=== PATIENT | female | born 1970 | race African-American/Black ===

== ENCOUNTER 2018-04-10 16:12 | Outpatient (CLI) | payer OTHER | END 2018-04-10 16:13 | disposition home or self-care (01) | LOC: BICMAMMO 16:12 | PROVIDERS: ATTEND Physician Assistant | DX: Z12.31 Encounter for screening mammogram for malignant neoplasm of breast (principal); Z80.3 Family history of malignant neoplasm of breast | CPT/HCPCS: 77063; 77067 ==

== ENCOUNTER 2019-09-08 14:31 | Outpatient (CLI) | payer OTHER ==
--- NOTE | 2019-09-08 15:17 | ULT ---
Exam: Right soft tissue neck ultrasound HISTORY: Right neck mass. COMPARISON: none TECHNIQUE: Targeted sonographic imaging of the right soft tissue neck performed There are no solid or cystic masses. Incidental right neck lymph node with preserved fatty hilum veena ures 0.6 x 0.4 x 1.2 cm. IMPRESSION: Incidental right soft tissue neck lymph node. If there is still suspicion for possible ri ght neck mass, consider postcontrast soft neck CT.
== END 2019-09-08 14:32 | disposition home or self-care (01) ==
LOC: BICULT 14:31
PROVIDERS: ATTEND Physician Assistant
DX: R22.1 Localized swelling, mass and lump, neck (principal)
CPT/HCPCS: 76999

== ENCOUNTER 2020-03-28 14:06 | Outpatient (CLI) | payer OTHER ==
--- NOTE | 2020-03-28 16:20 | MMO ---
Bilateral MAMMO Bilat Screen [facility]. CLINICAL HISTORY: Patient is 50 years old and is seen for screening. The patient has the following family history of breast cancer: 2 maternal aunts. The patient has no personal history of cancer. VIEWS: The views performed were: bilateral craniocaudal with tomosynthesis and bilateral mediolateral oblique with tomosynthesis. FILMS COMPARED: The present examination has been compared to prior imaging studies performed at [facility] on 03/30/2014, 04/03/2015, 04/12/2016 and 04/10/2018. This study has been interpreted with the assistance of computer-aided detection. MAMMOGRAM FINDINGS: There are scattered fibroglandular densities. There are no suspicious masses, suspicious calcifications, or new areas of architectural distortion. IMPRESSION: THERE IS NO MAMMOGRAPHIC EVIDENCE OF MALIGNANCY. A ROUTINE FOLLOW-UP MAMMOGRAM IN 1 YEAR IS RECOMMENDED. THE RESULTS OF THIS EXAM WERE SENT TO THE PATIENT. ACR BI-RADS Category 1 - Negative MAMMOGRAPHY NOTE: 1. A negative mammogram report should not delay a biopsy if a dominant of clinically suspicious mass is present. 2. Approximately 10% to 15% of breast cancers are not detected by mammography. 3. Adenosis and dense breasts may obscure an underlying neoplasm. Reported by: AARON GUARDADO MD Electonically Signed: [id number]
== END 2020-03-28 14:07 | disposition home or self-care (01) ==
LOC: BICMAMMO 14:06
PROVIDERS: ATTEND Physician Assistant
DX: Z12.31 Encounter for screening mammogram for malignant neoplasm of breast (principal); Z80.3 Family history of malignant neoplasm of breast
CPT/HCPCS: 77063; 77067

== ENCOUNTER 2020-09-21 21:41 | Emergency (ER) | payer OTHER ==
--- NOTE | 2020-09-21 22:20 | RAD ---
RADIOGRAPH CHEST 1 VIEW: DATE: 09/21/2020 HISTORY: 50-year-old female with cough, dyspnea, chills FINDINGS: There are no airspace densities, pulmonary edema, pneumothorax, or cardiomegaly. The lateral costophr enic angles are sharp. IMPRESSION: No acute cardiopulmonary findings.
[2020-09-21] MEDS ORDERED: Ibuprofen 800 MG TAB ONE (22:54)
[2020-09-21 23:51] LABS: #Lymphocytes 1.7 thou/uL (1.20-3.40); #Monocytes 0.8 thou/uL (0.11-0.59); %Basophils 0.4 % (0.0-1.0); %Eosinophils 0.4 % (0.0-10.0); %Lymphocytes 25.3 % (21.0-51.0); %Monocytes 12.4 % (0.0-10.0); %Neutrophils 61.6 % (42.0-75.0); Mean Corpuscular HGB CONC 32.5 g/dL (32.0-36.0); Mean Corpuscular Hemoglobin 28.3 pg (27.0-31.0); Mean Corpuscular Volume 87.1 fL (78.0-98.0); Mean Platelet Volume 8.8 fL (7.4-10.4); Platelet Count 214 thou/uL (130-400); RBC Distribution Width 13.4 % (11.5-14.5); Red Blood Cell (RBC) Count 4.93 mill/uL (4.20-5.40); White Blood Cell (WBC) Count 6.6 thou/uL (4.8-10.8)
[2020-09-22 00:12] LABS: ALT (SGPT) 27 U/L (8-55); AST (SGOT) 26 U/L (5-34); Albumin 3.8 g/dL (3.5-5.0); Alkaline Phosphatase 60 U/L (40-110); Anion Gap 16 mmol/L (10-20); BUN (Urea Nitrogen) 14 mg/dL (7.0-18.7); Bilirubin, Total 0.2 mg/dL (0.2-1.2); Calc. Creatinine Clearance 0 mL/min (70-130); Calcium 8.8 mg/dL (7.8-10.44); Carbon Dioxide 20 mmol/L (22-29); Chloride 108 mmol/L (98-107); Globulin 3.9 g/dL (2.4-3.5); Glucose 97 mg/dL (70-105); Potassium 4.1 mmol/L (3.5-5.1); Protein, Total 7.7 g/dL (6.0-8.3); Sodium 140 mmol/L (136-145)
[2020-09-22 02:57] LABS: SARS-CoV-2 MS2 Negative; SARS-CoV-2 N Gene Positive; SARS-CoV-2 S Gene Positive; SARS-CoV-2 by NAA DETECTED (NotDetected); SARS-CoV-2 orf1ab Positive
--- NOTE | 2020-09-22 08:36 | CT ---
PRELIMINARY REPORT/[facility]/EMERGENCY AFTER HOURS PROCEDURE: EXAM: CTA Chest with Intravenous Contrast CLINICAL HISTORY: PT REPORTS COUGH, CHILLS, AND BODY ACHES x 2 DAYS THAT HAVE GOTTEN PROGRESSIVELY WORSE. covid + TECHNIQUE: Axial CTA images of the chest with intravenous contrast. Three-dimensional MIP/volume rendered reform ations were performed. CONTRAST: With; ISOVUE 370; 50mL COMPARISON: None provided. FINDINGS: PULMONARY ARTERIES No intraluminal filling defect suspicious for PE. AORTA No thoracic aortic aneurysm or dissection. LUNGS The lungs are clear. No pulmonary mass. No focal airspace consolidation. PLEURAL SPACES No pleural effusion. No pneumothorax. HEART AND MEDIASTINUM No cardiomegaly. No significant pericardial effusion. LYMPH NODES Multiple enlarged bilateral axillary nodes, largest measuring up 2.2 cm in longest diameter, indeterm inate for neoplasm vs inflammatory or infectious immunologic processes, but worrisome for potential l ymphoma given history of chills and fever, for which further clinical correlation is needed. No adjoi scott supraclavicular, mediastinal or hilar lymphadenopathy. BONES No focal osseous abnormality or acute fracture. CHEST WALL AND UPPER ABDOMEN Images through the upper abdomen are unremarkable aside from a surgically absent gallbladder. The keith st wall is unremarkable. IMPRESSION: No evidence of PE, aortic dissection or CHF, and likewise, no lung consolidation or mass, but multipl e nonspecific enlarged bilateral axillary nodes, for which further clinical correlation is needed. Ly mphoma a consideration in the appropriate clinical context. ELECTRONICALLY SIGNED BY: Pool Amador MD Sep 22, 2020 12:54:44 AM FEED ADVISER This report is intended for review by the ordering physician only, in accordance of law. If you recei ve this report in error, please call [facility] at [phone]. FINAL REPORT EMERGENCY AFTER HOURS CTA CHEST: I agree with the preliminary report provided by [facility]. No central or segmental pulmonary e mbolus is demonstrated. There is nonspecific bilateral axillary adenopathy. No definite mediastinal o r hilar lymphadenopathy is evident. No overt adenopathy is seen within the upper abdomen. No acute ai r space disease is demonstrated. POS: AVA
== END 2020-09-22 01:14 | disposition home or self-care (01) ==
LOC: ERS 21:41
DX: U07.1 COVID-19 (principal); E11.9 Type 2 diabetes mellitus without complications; I50.9 Heart failure, unspecified; Z79.84 Long term (current) use of oral hypoglycemic drugs; Z79.899 Other long term (current) drug therapy
CPT/HCPCS: 36415; 71045; 71275; 80053; 84484; 85025; 87635; U0003

== ENCOUNTER 2021-04-09 12:17 | Outpatient (CLI) | payer OTHER | END 2021-04-09 12:18 | disposition home or self-care (01) | LOC: BICMAMMO 12:17 | PROVIDERS: ATTEND Physician Assistant | DX: Z12.31 Encounter for screening mammogram for malignant neoplasm of breast (principal); Z80.3 Family history of malignant neoplasm of breast | CPT/HCPCS: 77063; 77067 ==